=== PATIENT | male | born 1985 | race Hispanic/Latino ===

== ENCOUNTER 2018-04-13 20:18 | Emergency (ER) | payer SELFPAY ==
[2018-04-13] MEDS ORDERED: DEXAMETHASONE 10 MG/ML VIAL ONE (21:06)
[2018-04-13] MEDS ORDERED: HYDROCODONE/APAP 10/325 TAB ONE (21:07)
--- NOTE | 2018-04-13 21:24 | EDPHYS ---
Physician Documentation [facility] Name: Antoine Michael Jr Age: 32 yrs Sex: Male : 1985 Arrival Date: 04/13/2018 Time: 20:21 Bed 16 Private MD: None, None ED Physician Sahil Roper HPI: 04/13 20:52 This 32 yrs old Male presents to ER via Ambulatory with complaints of Low Back kb Pain. 20:52 The patient presents with pain that is acute, with no known mechanism of injury, and kb tenderness. The symptoms are located in the right low back. The pain does not radiate. The problem was sustained without known cause. Onset: The symptoms/episode began/occurred 17 day(s) ago. Modifying factors: the patient symptoms are aggravated by movement, standing. Associated signs and symptoms: The patient has no apparent associated signs or symptoms. Severity of symptoms: At their worst the symptoms were moderate, in the emergency department the symptoms are unchanged. The patient has not experienced similar symptoms in the past. The patient has not recently seen a physician. Pt reports right low back pain that started on March 27. Denies injury or trauma, woke up with the pain. . Historical: - Allergies: 20:27 No Known Allergies; aj1 - Home Meds: 20:27 None [Active]; aj1 - PMHx: 20:27 None; aj1 - PSHx: 20:27 None; aj1 - Immunization history:: Flu vaccine is not up to date. - Social history:: Smoking status: Patient/guardian denies using tobacco. - Ebola Screening: : Patient denies travel to an Ebola-affected area in the 21 days before illness onset. ROS: 20:51 Constitutional: Negative for fever, chills, and weight loss, ENT: Negative for injury, kb pain, and discharge, Neck: Negative for injury, pain, and swelling, Cardiovascular: Negative for chest pain, palpitations, and edema, Respiratory: Negative for shortness of breath, cough, wheezing, and pleuritic chest pain, Abdomen/GI: Negative for abdominal pain, nausea, vomiting, diarrhea, and constipation, MS/Extremity: Negative for injury and deformity, Skin: Negative for injury, rash, and discoloration, Neuro: Negative for headache, weakness, numbness, tingling, and seizure. 20:51 Back: Positive for pain at rest, pain with movement, of the right low back. Exam: 20:51 Constitutional: This is a well developed, well nourished patient who is awake, alert, kb and in no acute distress. Head/Face: Normocephalic, atraumatic. ENT: Nares patent. No nasal discharge, no septal abnormalities noted. Tympanic membranes are normal and external auditory canals are clear. Oropharynx with no redness, swelling, or masses, exudates, or evidence of obstruction, uvula midline. Mucous membranes moist. Neck: Trachea midline, no thyromegaly or masses palpated, and no cervical lymphadenopathy. Supple, full range of motion without nuchal rigidity, or vertebral point tenderness. No Meningismus. Chest/axilla: Normal chest wall appearance and motion. Nontender with no deformity. No lesions are appreciated. Cardiovascular: Regular rate and rhythm with a normal S1 and S2. No gallops, murmurs, or rubs. Normal PMI, no JVD. No pulse deficits. Respiratory: Lungs have equal breath sounds bilaterally, clear to auscultation and percussion. No rales, rhonchi or wheezes noted. No increased work of breathing, no retractions or nasal flaring. Abdomen/GI: Soft, non-tender, with normal bowel sounds. No distension or tympany. No guarding or rebound. No evidence of tenderness throughout. Skin: Warm, dry with normal turgor. Normal color with no rashes, no lesions, and no evidence of cellulitis. MS/ Extremity: Pulses equal, no cyanosis. Neurovascular intact. Full, normal range of motion. Neuro: Awake and alert, GCS 15, oriented to person, place, time, and situation. Cranial nerves II-XII grossly intact. Motor strength 5/5 in all extremities. Sensory grossly intact. Cerebellar exam normal. Normal gait. 20:51 Back: pain, that is moderate, that is severe, of the right low back, ROM is painful, normal spinal alignment noted. Vital Signs: 20:27 BP 149 / 106; Pulse 70; Resp 18; Temp 98.1; Pulse Ox 100% on R/A; Weight 108.86 kg (R); aj1 Height 5 ft. 10 in. (177.80 cm) (R); Pain 10/10; 21:30 BP 133 / 75; Pulse 71; Resp 16; Pulse Ox 99% ; rr5 20:27 Body Mass Index 34.44 (108.86 kg, 177.80 cm) aj1 MDM: 20:33 Patient medically screened. kb 20:51 Data reviewed: vital signs, nurses notes. Data interpreted: Pulse oximetry: on room air kb is 100 %. Interpretation: normal. Counseling: I had a detailed discussion with the patient and/or guardian regarding: the historical points, exam findings, and any diagnostic results supporting the discharge/admit diagnosis, the need for outpatient follow up, a family practitioner, to return to the emergency department if symptoms worsen or persist or if there are any questions or concerns that arise at home. Administered Medications: 21:00 Drug: [place] 10 mg-325 mg 1 tabs Route: PO; rr5 21:56 Follow up: Response: No adverse reaction rr5 21:04 Drug: Decadron 10 mg Route: IM; Site: right gluteus; rr5 21:56 Follow up: Response: No adverse reaction rr5 Disposition: 04/13/18 21:24 Discharged to Home. Impression: Low back pain. - Condition is Stable. - Discharge Instructions: Back Pain, Adult, [id number], Back Exercises, [id number]. - Prescriptions for Cyclobenzaprine 10 mg Oral Tablet - take 1 tablet by ORAL route every 8 hours As needed; 21 tablet. Tramadol 50 mg Oral Tablet - take 1 tablet by ORAL route every 8 hours as needed; 15 tablet. - Medication Reconciliation Form, Thank You Letter, Antibiotic Education, Prescription Opioid Use, Work release form form. - Follow up: Emergency Department; When: As needed; Reason: Worsening of condition. Follow up: Private Physician; When: 2 - 3 days; Reason: Recheck today's complaints, Continuance of care, Re-evaluation by your physician. Addendum: 04/20/2018 06:53 Co-signature as Attending Physician, Sahil Roper MD I agree with the assessment and t w4 plan of care. Signatures: Akua Doyle, QUILL STRIPPER-C QUILL STRIPPER-Ckb Shantal Capone RN RN aj1 Sahil Roper MD MD tw4 Alfredo Novak RN RN rr5 Corrections: (The following items were deleted from the chart) 04/13 21:56 21:24 04/13/2018 21:24 Discharged to Home. Impression: Low back pain. Condition is rr5 Stable. Discharge Instructions: Back Pain, Adult, [id number], Back Exercises, [id number]. Prescriptions for Cyclobenzaprine 10 mg Oral Tablet - take 1 tablet by ORAL route every 8 hours As needed; 21 tablet, Tramadol 50 mg Oral Tablet - take 1 tablet by ORAL route every 8 hours as needed; 15 tablet. and Forms are Medication Reconciliation Form, Thank You Letter, Antibiotic Education, Prescription Opioid Use. Follow up: Emergency Department; When: As needed; Reason: Worsening of condition. Follow up: Private Physician; When: 2 - 3 days; Reason: Recheck today's complaints, Continuance of care, Re-evaluation by your physician. kb
--- NOTE | 2018-04-13 21:24 | ER ---
Nurse's Notes [facility] Name: Antoine Michael Jr Age: 32 yrs Sex: Male : 1985 Arrival Date: 04/13/2018 Time: 20:21 Bed 16 Private MD: None, None Diagnosis: Low back pain Presentation: 04/13 20:25 Presenting complaint: Patient states: "I'm having severe low back pain" Reports pain aj1 for the past 17 days. Denies injury to his back [facility] Transition of care: patient was not received from another setting of care. Onset of symptoms was March 27, 2018. Risk Assessment: Do you want to hurt yourself or someone else? Patient reports no desire to harm self or others. Initial Sepsis Screen: Does the patient meet any 2 criteria? No. Patient's initial sepsis screen is negative. Does the patient have a suspected source of infection? No. Patient's initial sepsis screen is negative. Care prior to arrival: None. 20:25 Method Of Arrival: Ambulatory aj1 20:25 Acuity: CLAU 4 aj1 Triage Assessment: 20:27 General: Appears in no apparent distress. uncomfortable, Behavior is calm, cooperative, aj1 appropriate for age. Pain: Complains of pain in low back area Pain currently is 10 out of 10 on a pain scale. Neuro: Level of Consciousness is awake, alert, obeys commands. Cardiovascular: Patient's skin is warm and dry. Respiratory: Airway is patent Respiratory effort is even, unlabored, Respiratory pattern is regular, symmetrical. Historical: - Allergies: 20:27 No Known Allergies; aj1 - Home Meds: 20:27 None [Active]; aj1 - PMHx: 20:27 None; aj1 - PSHx: 20:27 None; aj1 - Immunization history:: Flu vaccine is not up to date. - Social history:: Smoking status: Patient/guardian denies using tobacco. - Ebola Screening: : Patient denies travel to an Ebola-affected area in the 21 days before illness onset. Screenin:00 Abuse screen: Denies threats or abuse. Denies injuries from another. rr5 21:00 Nutritional screening: No deficits noted. Tuberculosis screening: No symptoms or risk rr5 factors identified. Fall Risk None identified. Assessment: 21:05 General: Appears in no apparent distress. uncomfortable, Behavior is calm, cooperative, rr5 appropriate for age. Pain: Complains of pain in low back Pain does not radiate. Pain currently is 10 out of 10 on a pain scale. Quality of pain is described as aching, Pain began gradually, Is intermittent. Neuro: Level of Consciousness is awake, alert, obeys commands, Oriented to person, place, time, situation. Cardiovascular: Capillary refill < 3 seconds Patient's skin is warm and dry. Respiratory: Airway is patent Respiratory effort is even, unlabored, Respiratory pattern is regular, symmetrical. GI: No signs and/or symptoms were reported involving the gastrointestinal system. : No signs and/or symptoms were reported regarding the genitourinary system. EENT: No signs and/or symptoms were reported regarding the EENT system. Derm: Skin is intact, Skin temperature is warm. Musculoskeletal: Capillary refill < 3 seconds, Reports pain in low back. 21:50 Reassessment: Patient appears in no apparent distress at this time. discharge rr5 instruction given and explained with no complaints made. Patient states feeling better. Patient states symptoms have improved. Vital Signs: 20:27 BP 149 / 106; Pulse 70; Resp 18; Temp 98.1; Pulse Ox 100% on R/A; Weight 108.86 kg (R); aj1 Height 5 ft. 10 in. (177.80 cm) (R); Pain 10/10; 21:30 BP 133 / 75; Pulse 71; Resp 16; Pulse Ox 99% ; rr5 20:27 Body Mass Index 34.44 (108.86 kg, 177.80 cm) aj1 ED Course: 20:21 Patient arrived in ED. es 20:21 None, None is Private Physician. es 20:27 Triage completed. aj1 20:27 Arm band placed on Patient placed in an exam room. aj1 20:32 Akua Doyle FNP-C is [facility]. kb 20:32 Sahil Roper MD is Attending Physician. kb 20:37 Alfredo Novak RN is Primary Nurse. rr5 21:00 Patient has correct armband on for positive identification. Bed in low position. Call rr5 light in reach. 21:55 No provider procedures requiring assistance completed. IV discontinued. rr5 Administered Medications: 21:00 Drug: [place] 10 mg-325 mg 1 tabs Route: PO; rr5 21:56 Follow up: Response: No adverse reaction rr5 21:04 Drug: Decadron 10 mg Route: IM; Site: right gluteus; rr5 21:56 Follow up: Response: No adverse reaction rr5 Outcome: 21:24 Discharge ordered by MD. kulkarni 21:55 Discharged to home ambulatory, with family, with friend. rr5 21:55 Condition: stable 21:55 Discharge instructions given to patient, family, Instructed on discharge instructions, follow up and referral plans. medication usage, Demonstrated understanding of instructions, follow-up care, medications, Prescriptions given X 2. 21:56 Patient left the ED. rr5 Signatures: Akua Doyle, LIVIER BERGER-Shantal Landin RN RN aj1 Miesha Macedo Raymond RN RN rr5
== END 2018-04-13 21:56 | disposition home or self-care (01) ==
LOC: ER 20:18
DX: M54.5 Low back pain (principal)
CPT/HCPCS: 96372; 99283; J1100